=== PATIENT | female | born 1995 | race Caucasian/White ===

== ENCOUNTER 2018-01-12 18:20 | Emergency (ER) | payer MEDICAID ==
[~2018-01-12] VITALS: Ht 162.6 cm; Wt 73.0 kg
[2018-01-12 19:40] LABS: BASOPHILS % 0.7 % (0.0-2.0); EOSINOPHILS % 2.4 % (0.0-5.0); HEMATOCRIT. 41.4 % (36.0-48.0); HEMOGLOBIN. 14.5 g/dL (12.0-16.0); LYMPHOCYTES % 31.4 % (20.0-50.0); MEAN CORPUSCULAR HEMOGLOBIN 31.4 pg (28.0-32.0); MEAN CORPUSCULAR VOLUME 89.9 fL (81.0-99.0); MEAN PLATELET VOLUME 7.2 fl (7.4-10.4); MONOCYTES % 7.4 % (2.0-8.0); NEUTROPHILS % 58.1 % (40.0-76.0); PLATELET 239 x1000/uL (130-400); RED BLOOD CELL COUNT 4.61 mill/uL (4.2-5.4); RED CELL DISTRIBUTION WIDTH 12.5 % (11.6-14.6)
[2018-01-12 19:43] LABS: CHLORIDE 108 mEq/L (98-107)
[2018-01-12 19:46] LABS: PROTHROMBIN TIME 10.7 sec (9.4-11.6)
[2018-01-12 20:00] LABS: CLARITY URINE CLEAR (CLEAR); COLOR URINE YELLOW (YELLOW); KETONES URINE NEGATIVE (NEGATIVE); LEUKOCYTE ESTERASE URINE TRACE (NEGATIVE); NITRITE URINE NEGATIVE (NEGATIVE); OCCULT BLOOD URINE NEGATIVE (NEGATIVE); PH URINE 6.5 (4.5-8.0); PROTEIN URINE NEGATIVE (NEGATIVE); SPECIFIC GRAVITY URINE 1.027 (1.005-1.030)
[2018-01-12 20:15] LABS: *AMPHETAMINES SCREEN URINE NEGATIVE (NEGATIVE); *BARBITURATES SCREEN URINE NEGATIVE (NEGATIVE); *BENZODIAZEPINES SCREEN URINE NEGATIVE (NEGATIVE); *COCAINE SCREEN URINE NEGATIVE (NEGATIVE); METHADONE URINE SCREEN NEGATIVE (NEGATIVE); OPIATES URINE SCREEN NEGATIVE (NEGATIVE)
[2018-01-12 20:16] LABS: PHENCYCLIDINE URINE SCREEN NEGATIVE (NEGATIVE)
[2018-01-12 20:30] LABS: CANNABINOID URINE SCREEN PRESUMTIVE POSITIVE (NEGATIVE)
[2018-01-13 00:35] VITALS: BP 115/78
== END 2018-01-13 00:48 | disposition home or self-care (01) ==
LOC: ER 18:45
DX: G89.29 Other chronic pain (principal); R10.84 Generalized abdominal pain; R11.0 Nausea
CPT/HCPCS: 36415; 80053; 80305; 81003; 81025; 83690; 85025; 85610; 99284

== ENCOUNTER 2018-04-03 18:48 | Emergency (ER) | payer MEDICAID ==
[~2018-04-03] VITALS: Ht 162.6 cm; Wt 71.0 kg
[2018-04-03] MEDS ORDERED: ACETAMINOPHEN 325MG TABLET PO PRN (21:30)
[2018-04-03 22:04] LABS: BASOPHILS % 0.3 % (0.0-2.0); EOSINOPHILS % 1.3 % (0.0-5.0); HEMATOCRIT. 40.6 % (36.0-48.0); HEMOGLOBIN. 14.2 g/dL (12.0-16.0); LYMPHOCYTES % 30.7 % (20.0-50.0); MEAN CORPUSCULAR HEMOGLOBIN 32.1 pg (28.0-32.0); MEAN CORPUSCULAR VOLUME 91.6 fL (81.0-99.0); MEAN PLATELET VOLUME 7.6 fl (7.4-10.4); MONOCYTES % 5.3 % (2.0-8.0); NEUTROPHILS % 62.4 % (40.0-76.0); PLATELET 246 x1000/uL (130-400); RED BLOOD CELL COUNT 4.43 mill/uL (4.2-5.4); RED CELL DISTRIBUTION WIDTH 13.2 % (11.6-14.6)
[2018-04-03 22:06] LABS: CHLORIDE 104 mEq/L (98-107)
[2018-04-03 22:28] LABS: CLARITY URINE CLEAR (CLEAR); COLOR URINE YELLOW (YELLOW); KETONES URINE 1+ (NEGATIVE); LEUKOCYTE ESTERASE URINE TRACE (NEGATIVE); NITRITE URINE NEGATIVE (NEGATIVE); OCCULT BLOOD URINE NEGATIVE (NEGATIVE); PH URINE 6.5 (4.5-8.0); PROTEIN URINE NEGATIVE (NEGATIVE); SPECIFIC GRAVITY URINE 1.019 (1.005-1.030)
[2018-04-03 22:31] LABS: B-HCG QUANTITATIVE 107104 mIU/mL (<3)
[2018-04-03 22:53] VITALS: BP 116/67
== END 2018-04-03 23:28 | disposition home or self-care (01) ==
LOC: ER 19:02
DX: O20.0 Threatened abortion (principal); Z3A.09 9 weeks gestation of pregnancy
CPT/HCPCS: 36415; 76830; 76856; 80053; 81003; 81025; 84702; 85025; 86850; 86900; 86901; 99285; Z7610

== ENCOUNTER 2018-07-20 23:29 | Inpatient (IN) | payer MEDICAID ==
[~2018-07-20] VITALS: Ht 162.6 cm; Wt 73.0 kg
[2018-07-20] MEDS ORDERED: AZITHROMYCIN 500 MG in DEXT 5% WATER 250 ML IV SCH (23:45)
[2018-07-20] MEDS ORDERED: LACTATED RINGERS 1,000 ML IV SCH (23:45)
[2018-07-20] MEDS ORDERED: TERBUTALINE SULFATE 1MG/ML VIAL SUBCUT PRN (23:45)
[2018-07-20] MEDS ORDERED: PNV1TABL50 MT (23:46)
[2018-07-21] MEDS ORDERED: AZITHROMYCIN 500 MG in DEXT 5% WATER 250 ML IV SCH ×2
[2018-07-21] MEDS ORDERED: DEXT 5%/LR + PITOCIN 20UNITS/L 1,000 ML IV SCH ×2 (03:36→18:18)
[2018-07-21] MEDS ORDERED: MAGNESIUM 2 G PREMIX 50 ML IV SCH (03:45)
[2018-07-21] MEDS ORDERED: NALOXONE HCL 0.4 MG/ML 1ML VIAL IM PRN (03:45)
[2018-07-21] MEDS ORDERED: LIDOCAINE HCL 1% 20ML VIAL (Pyxis) INJ INFIL SCH (03:45)
[2018-07-21] MEDS ORDERED: CARBOPROST TROMETHAMINE 250 MCG/ML AMPUL IM PRN (03:45)
[2018-07-21] MEDS ORDERED: METHYLERGONOVINE MALEATE 0.2 MG/ML IM PRN (03:45)
[2018-07-21] MEDS ORDERED: MAGNESIUM 4 G PREMIX 100 ML IV NR (03:45)
[2018-07-21] MEDS ORDERED: BETAMETHASONE ACET/BETAMET 30 MG/5 ML VIAL IM SCH (03:45)
[2018-07-21] MEDS: MAGNESIUM 20 G PREMIX (L & D) 500 ML IV SCH ×2 (04:04→13:41)
[2018-07-21 04:52] LABS: BASOPHILS % 0.3 % (0.0-2.0); EOSINOPHILS % 0.1 % (0.0-5.0); HEMATOCRIT. 31.2 % (36.0-48.0); HEMOGLOBIN. 10.8 g/dL (12.0-16.0); LYMPHOCYTES % 10.7 % (20.0-50.0); MEAN CORPUSCULAR HEMOGLOBIN 32.3 pg (28.0-32.0); MEAN CORPUSCULAR VOLUME 93.4 fL (81.0-99.0); MEAN PLATELET VOLUME 7.1 fl (7.4-10.4); NEUTROPHILS % 83.9 % (40.0-76.0); PLATELET 258 x1000/uL (130-400); RED BLOOD CELL COUNT 3.34 mill/uL (4.2-5.4)
[2018-07-21 05:05] LABS: PROTHROMBIN TIME 9.6 sec (9.1-11.1)
[2018-07-21 05:06] LABS: CLARITY URINE CLEAR (CLEAR); COLOR URINE YELLOW (YELLOW); KETONES URINE 1+ (NEGATIVE); LEUKOCYTE ESTERASE URINE NEGATIVE (NEGATIVE); NITRITE URINE NEGATIVE (NEGATIVE); OCCULT BLOOD URINE 1+ (NEGATIVE); PH URINE 6.5 (4.5-8.0); PROTEIN URINE NEGATIVE (NEGATIVE); SPECIFIC GRAVITY URINE 1.008 (1.005-1.030)
[2018-07-21 05:18] LABS: *BENZODIAZEPINES SCREEN URINE NEGATIVE (NEGATIVE); *COCAINE SCREEN URINE NEGATIVE (NEGATIVE); OPIATES URINE SCREEN NEGATIVE (NEGATIVE)
[2018-07-21 05:19] LABS: *AMPHETAMINES SCREEN URINE NEGATIVE (NEGATIVE); *BARBITURATES SCREEN URINE NEGATIVE (NEGATIVE); CANNABINOID URINE SCREEN NEGATIVE (NEGATIVE); METHADONE URINE SCREEN NEGATIVE (NEGATIVE); PHENCYCLIDINE URINE SCREEN NEGATIVE (NEGATIVE)
[2018-07-21 05:31] LABS: HEPATITIS B SURFACE ANTIGEN NEGATIVE
[2018-07-21] MEDS: BUTORPHANOL TARTRATE 2 MG/ML VIAL IV PRN ×3 (05:35→14:55)
[2018-07-21] MEDS: LACTATED RINGERS 1,000 ML IV SCH ×2 (05:36→12:53)
[2018-07-21] MEDS ORDERED: PHENYLEPHRINE HCL 10 MG/ML 1ML (IV VIAL) IV ONE (16:45)
[2018-07-21] MEDS ORDERED: EPHEDRINE SULFATE 50MG/ML VIAL ONE (16:54)
[2018-07-21] MEDS ORDERED: SODIUM CHLORIDE 0.9% 10ML VIAL ONE (16:54)
[2018-07-21] MEDS ORDERED: OXYTOCIN 10 UNITS/ML 1ML ONE (17:18)
[2018-07-21] MEDS ORDERED: GLYCOPYRROLATE 0.2 MG/ML 2ML VIAL ONE (17:18)
[2018-07-21] MEDS ORDERED: FENTANYL CITRATE/PF 50MCG/ML 2ML VIAL ONE (17:19)
[2018-07-21] MEDS ORDERED: MORPHINE SULFATE/PF 1MG/ML 10ML AMP ONE (17:19)
[2018-07-21] MEDS ORDERED: BUPIVACAINE HCL/DEXTROSE/PF 0.75% 2ML AMP INJ ONE (17:19)
[2018-07-21] MEDS ORDERED: ONDANSETRON HCL 4MG/2ML INJ ONE (17:23)
[2018-07-21] MEDS ORDERED: CEFAZOLIN 2000MG PREMIX 50 ML IV ONE (17:45)
[2018-07-21] MEDS ORDERED: IBUPROFEN 400MG TABLET PO PRN (18:30)
[2018-07-21] MEDS ORDERED: ONDANSETRON HCL 4MG/2ML INJ IV PRN (18:30)
[2018-07-21] MEDS ORDERED: HEMORRHOIDAL SUPP PR PRN (18:30)
[2018-07-21] MEDS ORDERED: HYDROCODONE/ACETAMINOPHEN 5/325MG TABLET PO PRN (18:30)
[2018-07-21] MEDS ORDERED: NALOXONE HCL 0.4 MG/ML 1ML VIAL IV PRN (18:45)
[2018-07-21] MEDS ORDERED: BUTORPHANOL TARTRATE 2 MG/ML VIAL IV PRN (18:45)
[2018-07-21] MEDS ORDERED: DIPHENHYDRAMINE 50MG/ML VIAL IV PRN (18:45)
[2018-07-21] MEDS: KETOROLAC 30MG/ML VIAL IV PRN (19:05)
[2018-07-21 21:35] VITALS: BP 85/56
[2018-07-21 22:00] VITALS: BP 76/45
[2018-07-21 22:30] VITALS: BP 85/39
[2018-07-21 23:05] VITALS: BP 78/39
[2018-07-21 23:40] VITALS: BP 83/39
[2018-07-21] MEDS ORDERED: LACTATED RINGERS 1,000 ML IV SCH (23:45)
[2018-07-22] VITALS (7 sets, daily range): BP systolic 85–107; BP diastolic 41–57
[2018-07-22] MEDS: KETOROLAC 30MG/ML VIAL IV PRN ×3 (06:01→18:06)
[2018-07-22] MEDS: SIMETHICONE 80MG TABLET CHEW PO SCH ×3 (08:33→21:57)
[2018-07-22 12:34] LABS: HEMATOCRIT. 30.9 % (36.0-48.0); HEMOGLOBIN. 10.6 g/dL (12.0-16.0); MEAN CORPUSCULAR HEMOGLOBIN 32.8 pg (28.0-32.0); MEAN CORPUSCULAR VOLUME 95.9 fL (81.0-99.0); MEAN PLATELET VOLUME 6.9 fl (7.4-10.4); PLATELET 268 x1000/uL (130-400); RED BLOOD CELL COUNT 3.23 mill/uL (4.2-5.4); RED CELL DISTRIBUTION WIDTH 13.1 % (11.6-14.6)
[2018-07-22 14:09] LABS: PLATELET ESTIMATE NORMAL
[2018-07-22] MEDS: FERROUS SULFATE 325MG TABLET PO SCH (18:07)
[2018-07-22] MEDS: ACETAMINOPHEN WITH CODEINE 300/30MG TABLET PO PRN (21:36)
[2018-07-22] MEDS: DOCUSATE SODIUM 100MG CAPSULE PO SCH (21:57)
[2018-07-23 00:30] VITALS: BP 94/55
[2018-07-23 04:00] VITALS: BP 98/62
[2018-07-23] MEDS: SIMETHICONE 80MG TABLET CHEW PO SCH ×3 (08:45→16:53)
[2018-07-23] MEDS: ACETAMINOPHEN WITH CODEINE 300/30MG TABLET PO PRN ×2 (08:45→23:35)
[2018-07-23] MEDS: FERROUS SULFATE 325MG TABLET PO SCH ×3 (08:45→16:53)
[2018-07-23 09:00] VITALS: BP 101/58
[2018-07-23] MEDS ORDERED: SODIUM BICARBONATE 4.2% 5 MEQ/10 ML DISP.SYRIN IV SCH (15:30)
[2018-07-23 17:00] VITALS: BP 95/54
[2018-07-23 20:00] VITALS: BP 102/68
[2018-07-23] MEDS: DOCUSATE SODIUM 100MG CAPSULE PO SCH (22:50)
[2018-07-24] VITALS: BP 99/60
[2018-07-24 04:00] VITALS: BP 113/67
[2018-07-24 08:00] VITALS: BP 113/81
[2018-07-24] MEDS ORDERED: TETANUS, DIPHTHERIA, PERTUSSIS VAC/PF 0.5ML (>7YR OLD) IM ONE (09:00)
[2018-07-24] MEDS: SIMETHICONE 80MG TABLET CHEW PO SCH ×2 (09:00→10:15)
[2018-07-24] MEDS: FERROUS SULFATE 325MG TABLET PO SCH (10:15)
[2018-07-24] MEDS ORDERED: INFLUENZA VACCINE IM ONE (11:00)
== END 2018-07-24 12:00 | disposition home or self-care (01) | DRG 540 ==
LOC: OBSVTOIN 23:29 → L&D 23:29 → 7EST PP/OB 07-21 21:33
PROVIDERS: ADMIT Obstetrics & Gynecology; ATTEND Obstetrics & Gynecology
PROC: 10D00Z1 Extraction of Products of Conception, Low, Open Approach (ICD-10-PCS; principal; 2018-07-21)
DX: O32.8XX0 Maternal care for other malpresentation of fetus, not applicable or unspecified (principal); O34.32 Maternal care for cervical incompetence, second trimester; O60.12X0 Preterm labor second trimester with preterm delivery second trimester, not applicable or unspecified; Z3A.23 23 weeks gestation of pregnancy; Z82.3 Family history of stroke; Z37.0 Single live birth; Z23 Encounter for immunization
CPT/HCPCS: 36415; 76805; 80305; 83735; 86592; 86703; 86762; 86850; 86900; 87070; 87340; 88307; 90686; 90715; 99281; G0378; J0456; J0595; J0690; J0702; J1200; J1885; J2274; J2370; J2405; J2590; J3010; J3105; J3475; J3490; J7060; J7120

== ENCOUNTER 2020-11-29 17:16 | Emergency (ER) | payer MEDICAID ==
[~2020-11-29] VITALS: Ht 165.1 cm; Wt 70.0 kg
[~2020-11-29 17:16] MED LIST: PNV1TABL50 MT
[2020-11-29] MEDS ORDERED: ACETAMINOPHEN 325MG TABLET PO ONE (18:15)
[2020-11-29] MEDS ORDERED: SODIUM CHLORIDE 0.9% 1000ML BAG (SEPSIS BOLUS) IV ONE (18:15)
[2020-11-29 18:38] LABS: CLARITY URINE CLOUDY (CLEAR); COLOR URINE YELLOW (YELLOW); KETONES URINE 3+ (NEGATIVE); LEUKOCYTE ESTERASE URINE 2+ (NEGATIVE); NITRITE URINE NEGATIVE (NEGATIVE); OCCULT BLOOD URINE 2+ (NEGATIVE); PH URINE 6.5 (4.5-8.0); PROTEIN URINE 1+ (NEGATIVE); SPECIFIC GRAVITY URINE 1.017 (1.005-1.030)
[2020-11-29] MEDS ORDERED: ONDANSETRON HCL 4MG/2ML INJ IV ONE (18:45)
[2020-11-29] MEDS ORDERED: KETOROLAC 15MG/ML VIAL IV ONE (18:45)
[2020-11-29 18:49] LABS: OPIATES URINE SCREEN NEGATIVE (NEGATIVE)
[2020-11-29 18:50] LABS: *AMPHETAMINES SCREEN URINE NEGATIVE (NEGATIVE); *BARBITURATES SCREEN URINE NEGATIVE (NEGATIVE); *BENZODIAZEPINES SCREEN URINE NEGATIVE (NEGATIVE); *COCAINE SCREEN URINE NEGATIVE (NEGATIVE); PHENCYCLIDINE URINE SCREEN NEGATIVE (NEGATIVE)
[2020-11-29 18:51] LABS: METHADONE URINE SCREEN NEGATIVE (NEGATIVE)
[2020-11-29 18:54] LABS: CANNABINOID URINE SCREEN PRESUMTIVE POSITIVE (NEGATIVE)
[2020-11-29 19:05] LABS: HEMATOCRIT. 41.2 % (36.0-48.0); HEMOGLOBIN. 14.2 g/dL (12.0-16.0); MEAN CORPUSCULAR HEMOGLOBIN 31.8 pg (28.0-32.0); MEAN CORPUSCULAR VOLUME 91.9 fL (81.0-99.0); MEAN PLATELET VOLUME 7.6 fl (7.4-10.4); PLATELET 217 x1000/uL (130-400); RED BLOOD CELL COUNT 4.48 mill/uL (4.2-5.4); RED CELL DISTRIBUTION WIDTH 12.8 % (11.6-14.6)
[2020-11-29 19:15] LABS: CHLORIDE 103 mEq/L (98-107)
[2020-11-29 19:19] LABS: ETHANOL BLOOD < 10 mg/dL; HCG SCREEN NEGATIVE
[2020-11-29 19:30] LABS: PLATELET ESTIMATE NORMAL
[2020-11-29 19:35] LABS: INR 1.1; PROTHROMBIN TIME 12.2 sec (9.6-11.0)
[2020-11-29] MEDS ORDERED: IOHEXOL-300 100 ML BOTTLE ONE (20:20)
[2020-11-29] MEDS ORDERED: PIPERACILLIN/TAZOBACTAM 3.375 G in DEXT 5% WATER 100 ML IV ONE (20:30)
[2020-11-29] MEDS ORDERED: PIPERACILLIN/TAZOBACTAM 3.375GM/50ML PREMIX IV ONE (20:30)
[2020-11-29] MEDS ORDERED: MORPHINE SULFATE 4 MG/ML CPJ (NOT FOR IM USE) IV ONE (22:00)
[2020-11-30] MEDS ORDERED: ACETAMINOPHEN 325MG TABLET PO NR (10:00)
[2020-11-30 10:21] VITALS: BP 104/65
== END 2020-11-30 10:24 | disposition short-term general hospital (02) ==
LOC: ER 17:16 → CANBEDREQ 11-30 10:17 → ER 11-30 10:24
DX: A41.9 Sepsis, unspecified organism (principal); N12 Tubulo-interstitial nephritis, not specified as acute or chronic
CPT/HCPCS: 36415; 71045; 74177; 80053; 80305; 80320; 81003; 81025; 83605; 83690; 84145; 84484; 84703; 85025; 85610; 87040; 87077; 87086; 87186; 93005; 96361; 96374; 96375; 99285; J1885; J2270; J2405; J2543; J7030; J7060; Q9967; G0480